=== PATIENT | female | born 1995 | race Caucasian/White ===

== ENCOUNTER → 2017-10-20 | Outpatient (CLI) | payer MEDICAID ==
[~2017-10-20] MED LIST: ACET1TAB43 PO; CEPH250T PO; HYDR1TAB PO; IBP200T PO; [UNRECOGNIZED DRUG - CODE] PO
--- NOTE | 2017-10-20 14:50 | Diagnostic Imaging Report ---
PROCEDURE: US OB SINGLE FETUS <14 WKS. TECHNIQUE: Multiple real-time grayscale images were obtained over the gravid uterus in various projections. INDICATION: dates. FINDINGS: There is a single live fetus in a cephalic presentation. The placenta is posterior. The amniotic fluid volume is normal. heart rate is recorded at 147 beats per minute. No gross abnormalities are seen. IMPRESSION: Single live IUP of approximately 14 weeks 5 days gestational age. The estimated date of confinement sonographically is 04/15/2018. Dictated by: Dictated on workstation # [id number]
== END ==
LOC: RAD 11:46
PROVIDERS: ATTEND Family Medicine
DX: Z34.92 Encounter for supervision of normal pregnancy, unspecified, second trimester (principal); Z3A.14 14 weeks gestation of pregnancy
CPT/HCPCS: 76801

== ENCOUNTER → 2017-11-29 | Outpatient (CLI) | payer MEDICAID ==
--- NOTE | 2017-11-29 14:23 | Diagnostic Imaging Report ---
INDICATION: survey. TECHNIQUE: Multiple real-time grayscale images were obtained over the gravid uterus. COMPARISON: 10/20/2017. FINDINGS: There is a single live fetus in a cephalic presentation. The placenta is posterior. The amniotic fluid volume is normal. kidneys, bladder, and stomach are unremarkable. Intracranial structures are unremarkable. There is a four-chamber heart. heart rate was recorded at 152 beats per minute. There is a three-vessel cord with normal cord insertion. The spine is unremarkable. Biometrical measurements are as follows: Biparietal 4.6 cm, age 19 weeks 6 days. Head circumference 16.8 cm, age 19 weeks 4 days. Abdominal circumference 15.0 cm, age 20 weeks 2 days. Femur length 3.2 cm, age 19 weeks 6 days. Sonographic estimate age: 20 weeks 0 days. Sonographic estimated date of delivery: 04/18/18. Estimated Weight: 325 gm (+/- 48 gm). LMP percentile: 23%. heart rate: 152 beats per minute. number: 1 of 1. IMPRESSION: Single live IUP at approximately 20 weeks gestational age demonstrating normal interval growth when compared with prior exam from 10/20/2017. No complicating features are identified. Dictated by: Dictated on workstation # [id number]
== END ==
LOC: RAD 13:14
PROVIDERS: ATTEND Family Medicine
DX: Z36.89 Encounter for other specified antenatal screening (principal); Z3A.20 20 weeks gestation of pregnancy
CPT/HCPCS: 76805

== ENCOUNTER 2018-04-11 19:00 | Inpatient (IN) | payer MEDICAID ==
[~2018-04-11] VITALS: Ht 157.5 cm; Wt 64.1 kg
[2018-04-11] MEDS ORDERED: AMPICILLIN INJECTION 2,000 MG in NS (IVPB) 50 ML IV SCH (19:37)
[2018-04-11 19:45] VITALS: BP 146/91
[2018-04-11] MEDS ORDERED: MISOPROSTOL 100 MCG (CYTOTEC) TAB PO ONE (19:45)
[2018-04-11] MEDS ORDERED: ZOLPIDEM 5 MG (AMBIEN) TAB PO PRN (19:45)
[2018-04-11] MEDS ORDERED: MINERAL OIL CONCENTRATE 99.9% 15 ML UDC TOP PRN (19:45)
[2018-04-11] MEDS: D5 LR IV SOLUTION 1,000 ML IV SCH (20:10)
[2018-04-11 20:31] LABS: BASOPHILS % (AUTO) 0 % (0-10); EOSINOPHILS # (AUTO) 0.1 10^3/uL (0.0-0.3); EOSINOPHILS % (AUTO) 1 % (0-10); HEMATOCRIT 37 % (35-52); HEMOGLOBIN 12.9 G/DL (11.5-16.0); LYMPHOCYTES # (AUTO) 3.3 X 10^3 (1.0-4.0); LYMPHOCYTES % (AUTO) 22 % (12-44); MEAN CORPUSCULAR HEMOGLOBIN 32 PG (25-34); MEAN CORPUSCULAR HGB CONC 35 G/DL (32-36); MEAN CORPUSCULAR VOLUME 90 FL (80-99); MEAN PLATELET VOLUME 11.7 FL (7.4-10.4); MONOCYTES # (AUTO) 1.2 X 10^3 (0.0-1.0); MONOCYTES % (AUTO) 8 % (0-12); NEUTROPHILS # (AUTO) 10.5 X 10^3 (1.8-7.8); NEUTROPHILS % (AUTO) 69 % (42-75); PLATELET COUNT 177 10^3/uL (130-400); RED BLOOD COUNT 4.09 10^6/uL (4.35-5.85); RED CELL DISTRIBUTION WIDTH 13.2 % (10.0-14.5); WHITE BLOOD COUNT 15.1 10^3/uL (4.3-11.0)
[2018-04-11] MEDS ORDERED: PREN-53 PO (20:35)
[2018-04-11 20:53] LABS: BAND NEUTROPHILS 0 %; BASOPHILS % (MANUAL) 0 %; EOSINOPHILS % (MANUAL) 1 %; LYMPHOCYTES % (MANUAL) 17 %; MONOCYTES % (MANUAL) 3 %; NEUTROPHILS % (MANUAL) 79 %; RBC MORPH NORMAL
[2018-04-11] MEDS ORDERED: LACTATED RINGERS 1,000 ML IV SCH (21:21)
[2018-04-11] MEDS ORDERED: CATHETER FLUSH 10 ML SYR IV SCH (22:00)
[2018-04-11] MEDS ORDERED: MISOPROSTOL 100 MCG (CYTOTEC) TAB PO SCH (23:45)
[2018-04-12] VITALS (45 sets, daily range): BP systolic 95–152; BP diastolic 51–97
[2018-04-12] MEDS: AMPICILLIN INJECTION 1,000 MG in NS (IVPB) 50 ML IV SCH ×4 (00:22→12:37)
[2018-04-12] MEDS: MISOPROSTOL 100 MCG (CYTOTEC) TAB PO SCH ×2 (00:30→04:18)
[2018-04-12] MEDS: D5 LR IV SOLUTION 1,000 ML IV SCH ×2 (01:56→10:59)
[2018-04-12] MEDS ORDERED: OXYTOCIN/NORMAL SALINE 500 ML IV ONE ×2 (07:29→16:08)
[2018-04-12] MEDS ORDERED: OXYTOCIN/NORMAL SALINE 500 ML IV SCH ×2 (07:34→17:29)
--- NOTE | 2018-04-12 07:35 | History & Physical-OB ---
OB - Chief Complaint & HPI Date/Time Date of Admission: Date of Admission: Apr 11, 2018 at 19:28 Time Seen by Provider: 07:15 Chief Complaint/History OB-Reason for Admission/Chief: Induction of Labor Hx : 1 Hx Para: 0 Expected Date of Delivery: Apr 15, 2018 Gestational Age in Weeks: 39 Gestational Age in Days: 4 Admission Nurse Assessment Rev: Yes History of Labs GBS positive Allergies and Home Medications Allergies Coded Allergies: No Known Drug Allergies (Unverified , 12/13/12) Home Medications [id number]/Iron Fumarate/FA/Dss 1 Each Tablet, 1 EACH PO DAILY, (Reported) Patient Home Medication List Home Medication List Reviewed: Yes OB - History Hx of Present Care: Yes Ultrasounds: Normal mid trimester US Obstetrical Complications: None Medical Complications: None Delivery History Hx Blood Disorders: No Patient Past Medical History no chronic medical problems Social History/Family History HIV/AIDS: No Recent Infectious Disease Expo: No Sexually Transmitted Disease: No Alcohol Use: Denies Use Recreational Drug Use: No Immunizations Hepatitis A: No Hepatitis B: No Tetanus Booster (TDap): Less than 5yrs OB - Admission Exam Physical Exam Vitals: Vital Signs 04/12/18 03:10 Temp 97.3 Pulse 75 Resp 18 B/P (MAP) 131/67 (88) O2 Delivery Room Air HEENT: Moist Membranes Heart: Rhythm Normal Lungs: Clear Abdomen: Gravid Extremities: Normal Cervical Dilatation: 1cm Effacement: 50% Membranes: Intact Heart Rate: 140's Accelerations: Accelerations Present Skilled Nursing Variability: Average (6-25) Contractions on Admission: >10 Minutes Apart Intensity: Mild Herron Scoring Tool (Modified) Dilation (cm): 1-2cm (1) Effacement (%): 31-51% (1) Descent/Station: -3 (0) Cervix Consistency: Medium(1) Cervix Position: Middle/Mid-Position (1) Herron Score: 4 Labs Laboratory Tests Test 04/11/18 20:10 Range/Units White Blood Count 15.1 H 4.3-11.0 10^3/uL Red Blood Count 4.09 L 4.35-5.85 10^6/uL Hemoglobin 12.9 11.5-16.0 G/DL Hematocrit 37 35-52 % Mean Corpuscular Volume 90 80-99 FL Mean Corpuscular Hemoglobin 32 25-34 PG Mean Corpuscular Hemoglobin Concent 35 32-36 G/DL Red Cell Distribution Width 13.2 10.0-14.5 % Platelet Count 177 130-400 10^3/uL Mean Platelet Volume 11.7 H 7.4-10.4 FL Neutrophils (%) (Auto) 69 42-75 % Lymphocytes (%) (Auto) 22 12-44 % Monocytes (%) (Auto) 8 0-12 % Eosinophils (%) (Auto) 1 0-10 % Basophils (%) (Auto) 0 0-10 % Neutrophils # (Auto) 10.5 H 1.8-7.8 X 10^3 Lymphocytes # (Auto) 3.3 1.0-4.0 X 10^3 Monocytes # (Auto) 1.2 H 0.0-1.0 X 10^3 Eosinophils # (Auto) 0.1 0.0-0.3 10^3/uL Basophils # (Auto) 0.0 0.0-0.1 10^3/uL Neutrophils % (Manual) 79 % Lymphocytes % (Manual) 17 % Monocytes % (Manual) 3 % Eosinophils % (Manual) 1 % Basophils % (Manual) 0 % Band Neutrophils 0 % Blood Morphology Comment NORMAL OB - Assessment/Plan/Diagnosis Assessment Assessment: induction of labor Admission Dx 1. IUP at 39w4d gestation Admission Status: Inpatient Order (span 2 midnights) Reason for Inpatient Admission: L&D Plan Plan: Induction Induction Method: per Misoprostol Protocol Other Plan desires epidural JEFF DAVALOS MD Apr 12, 2018 07:35
[2018-04-12] MEDS: BUTORPHANOL INJ 2 MG/ML (STADOL) VIAL IV PRN ×2 (09:27→12:37)
--- NOTE | 2018-04-12 11:34 | Progress Note (SOAP) ---
Subjective Date Seen by Provider: Apr 12, 2018 Time Seen by Provider: 11:30 Subjective/Events-last exam Patient in labor. Pitocin was at 10 uU/min. One prolonged decel lasting 6 minutes occurred with recovery. strip with rate in the 140 rate range. Objective Exam Vital Signs Date Time Temp Pulse Resp B/P (MAP) Pulse Ox O2 Delivery O2 Flow Rate FiO2 04/12/18 10:20 100 18 128/89 (102) Room Air 04/12/18 10:05 81 18 140/76 (97) Room Air 04/12/18 09:50 78 18 135/72 (93) Room Air 04/12/18 09:35 70 18 133/73 (93) Room Air 04/12/18 09:20 80 18 128/93 (105) Room Air 04/12/18 09:05 67 18 133/80 (97) Room Air 04/12/18 09:00 71 18 121/97 (105) Room Air 04/12/18 08:45 81 18 125/64 (84) Room Air 04/12/18 08:30 68 18 137/78 (97) Room Air 04/12/18 08:15 68 18 137/78 (97) Room Air 04/12/18 08:00 68 18 123/79 (94) Room Air 04/12/18 07:45 70 18 119/73 (88) Room Air 04/12/18 07:30 68 18 128/80 (96) Room Air 04/12/18 07:15 97.4 82 18 133/90 (104) Room Air 04/12/18 03:10 97.3 75 18 131/67 (88) Room Air 04/12/18 01:00 97.3 75 18 131/67 (88) Room Air 04/11/18 21:20 97.6 04/11/18 19:45 88 18 146/91 (109) Room Air I & O 04/12/18 07:00 Intake Total 2750 ml Balance 2750 ml Capillary Refill : General Appearance: No Apparent Distress Other comments cervix at 1 1/2 cm dilated and cervix now soft and 70% effaced. Results Lab Laboratory Tests 04/11/18 20:10: White Blood Count 15.1H, Red Blood Count 4.09L, Hemoglobin 12.9, Hematocrit 37, Mean Corpuscular Volume 90, Mean Corpuscular Hemoglobin 32, Mean Corpuscular Hemoglobin Concent 35, Red Cell Distribution Width 13.2, Platelet Count 177, Mean Platelet Volume 11.7H, Neutrophils (%) (Auto) 69, Lymphocytes (%) (Auto) 22 , Monocytes (%) (Auto) 8, Eosinophils (%) (Auto) 1, Basophils (%) (Auto) 0, Neutrophils # (Auto) 10.5H, Lymphocytes # (Auto) 3.3, Monocytes # (Auto) 1.2H, Eosinophils # (Auto) 0.1, Basophils # (Auto) 0.0, Neutrophils % (Manual) 79, Lymphocytes % (Manual) 17, Monocytes % (Manual) 3, Eosinophils % (Manual) 1, Basophils % (Manual) 0, Band Neutrophils 0, Blood Morphology Comment NORMAL Assessment/Plan Assessment/Plan Assess & Plan/Chief Complaint 1. IUP at 39w4d gestation -will restart pit at 5uU/min -family made aware that if labor not tolerated with starting pit back up and if no change of cervix she may need primary cs. All questions answered. Clinical Quality Measures DVT/VTE Risk/Contraindication: Risk Factor Score Per Nursin RFS Level Per Nursing on Admit: 1=Low/No VTE PPX JEFF DAVALOS MD Apr 12, 2018 11:34
[2018-04-12] MEDS ORDERED: SUFENTA 0.6MCG/ML BUPIVA 0.125 100 ML ONE (14:13)
[2018-04-12] MEDS ORDERED: BUPIVACAINE 0.5% 30 ML (SENSORCAINE) VIAL ONE ×2 (14:43→17:48)
[2018-04-12] MEDS ORDERED: LIDOCAINE PF 2% 5 ML (XYLOCAINE) VIAL ONE ×3 (14:43→16:07)
[2018-04-12] MEDS ORDERED: fentaNYL INJECTION 100 MCG/2 ML AMP ONE (14:44)
[2018-04-12] MEDS ORDERED: BUPIVACAINE 0.25% 30 ML (SENSORCAINE) VIAL ONE (14:46)
[2018-04-12] MEDS ORDERED: LACTATED RINGERS 1,000 ML IV SCH (15:11)
[2018-04-12] MEDS ORDERED: ONDANSETRON 4 MG/2 ML (SDV) Z0FRAN IV PRN (15:15)
[2018-04-12] MEDS ORDERED: NALOXONE 0.4 MG/ML 1 ML (NARCAN) VIAL IV PRN (15:15)
[2018-04-12] MEDS ORDERED: EPIDURAL (SUFENTA 0.6MCG/ML BUPIVA 0.125%) 100 ML BAG EPI PRN (15:15)
[2018-04-12] MEDS ORDERED: diphenhydrAMINE 50 MG/ML INJ (BENADRYL) IV PRN (15:15)
[2018-04-12] MEDS ORDERED: AZITHROMYCIN INJECTION 500 MG in NS (IVPB) 250 ML IV ONE (15:45)
[2018-04-12] MEDS ORDERED: ceFAZolin 2 GM IV Premixed 50 ML IV ONE (15:45)
[2018-04-12] MEDS ORDERED: LACTATED RINGERS 1,000 ML IV PRN ×2 (15:47)
--- NOTE | 2018-04-12 15:48 | Progress Note (SOAP) ---
Subjective Date Seen by Provider: Apr 12, 2018 Time Seen by Provider: 15:40 Subjective/Events-last exam Patient is with epidural now. She has good pain relief. Objective Exam Vital Signs Date Time Temp Pulse Resp B/P (MAP) Pulse Ox O2 Delivery O2 Flow Rate FiO2 04/12/18 11:28 68 20 130/81 (97) Room Air 04/12/18 11:05 62 18 125/62 (83) Room Air 04/12/18 10:50 67 18 109/62 (78) Room Air 04/12/18 10:35 59 18 121/59 (79) Room Air 04/12/18 10:20 100 18 128/89 (102) Room Air 04/12/18 10:05 81 18 140/76 (97) Room Air 04/12/18 09:50 78 18 135/72 (93) Room Air 04/12/18 09:35 70 18 133/73 (93) Room Air 04/12/18 09:20 80 18 128/93 (105) Room Air 04/12/18 09:05 67 18 133/80 (97) Room Air 04/12/18 09:00 71 18 121/97 (105) Room Air 04/12/18 08:45 81 18 125/64 (84) Room Air 04/12/18 08:30 68 18 137/78 (97) Room Air 04/12/18 08:15 68 18 137/78 (97) Room Air 04/12/18 08:00 68 18 123/79 (94) Room Air 04/12/18 07:45 70 18 119/73 (88) Room Air 04/12/18 07:30 68 18 128/80 (96) Room Air 04/12/18 07:15 97.4 82 18 133/90 (104) Room Air 04/12/18 03:10 97.3 75 18 131/67 (88) Room Air 04/12/18 01:00 97.3 75 18 131/67 (88) Room Air 04/11/18 21:20 97.6 04/11/18 19:45 88 18 146/91 (109) Room Air I & O 04/12/18 07:00 Intake Total 2750 ml Balance 2750 ml Capillary Refill : General Appearance: No Apparent Distress Other comments Cervix: 2cm, 80% effaced, still -3. monitor at times flat with no variability. Variable decels with multiple contractions. Results Lab Laboratory Tests 04/11/18 20:10: White Blood Count 15.1H, Red Blood Count 4.09L, Hemoglobin 12.9, Hematocrit 37, Mean Corpuscular Volume 90, Mean Corpuscular Hemoglobin 32, Mean Corpuscular Hemoglobin Concent 35, Red Cell Distribution Width 13.2, Platelet Count 177, Mean Platelet Volume 11.7H, Neutrophils (%) (Auto) 69, Lymphocytes (%) (Auto) 22 , Monocytes (%) (Auto) 8, Eosinophils (%) (Auto) 1, Basophils (%) (Auto) 0, Neutrophils # (Auto) 10.5H, Lymphocytes # (Auto) 3.3, Monocytes # (Auto) 1.2H, Eosinophils # (Auto) 0.1, Basophils # (Auto) 0.0, Neutrophils % (Manual) 79, Lymphocytes % (Manual) 17, Monocytes % (Manual) 3, Eosinophils % (Manual) 1, Basophils % (Manual) 0, Band Neutrophils 0, Blood Morphology Comment NORMAL Assessment/Plan Assessment/Plan Assess & Plan/Chief Complaint 1. IUP at 39w4d gestation -will restart pit at 5uU/min -family made aware that if labor not tolerated with starting pit back up and if no change of cervix she may need primary cs. All questions answered. 05:45 -due to lack of cervical dilation and monitor non-reassuring, will plan on primary low CS. Dr Munguia and surgery crew notified -patient and family in agreement with plan for CS. Clinical Quality Measures DVT/VTE Risk/Contraindication: Risk Factor Score Per Nursin RFS Level Per Nursing on Admit: 1=Low/No VTE PPX JEFF DAVALOS MD Apr 12, 2018 15:48
[2018-04-12] MEDS ORDERED: METHYLERGONOVINE 0.2 MG/ML (METHERGINE) AMP ONE (15:58)
[2018-04-12] MEDS ORDERED: METOCLOPRAMIDE INJ 10 MG/2 ML (REGLAN) IV ONE (16:00)
[2018-04-12] MEDS ORDERED: CITRIC ACID/SOB CIT (BICITRA) 30 ML UDC PO ONE (16:00)
[2018-04-12] MEDS ORDERED: raNItidine INJECTION 50 MG in NS (IVPB) 50 ML IV ONE (16:00)
[2018-04-12] MEDS ORDERED: ONDANSETRON 4 MG/2 ML (SDV) Z0FRAN ONE (16:06)
--- NOTE | 2018-04-12 16:28 | Physician Progress Note ---
Progress Note Assessment/Plan Date Seen by Provider: Apr 12, 2018 Time Seen by Provider: 15:45 Events since last exam epidural placement Assessment/Plan Asked to consult by Dr. Joseph due to failed induction and heartrate decelerations. Plan primary LTCS. will use epidural. Risks of surgery include bleeding, infection, injury to bowel, bladder and ureter. Consent signed. Has been receiving IV ampicillin for GBS prophylaxis. Will do ancef 2 grams and Zithromax 500 mg (due to AROM) for surgical prophylaxis. History per Dr. Joseph. 1. IUP at 39w4d gestation -will restart pit at 5uU/min -family made aware that if labor not tolerated with starting pit back up and if no change of cervix she may need primary cs. All questions answered. 15:45 -due to lack of cervical dilation and monitor non-reassuring, will plan on primary low CS. Dr Hernandez and surgery crew notified -patient and family in agreement with plan for CS. Vitals Last set of Vitals Signs Vital Signs Date Time Temp Pulse Resp B/P (MAP) Pulse Ox O2 Delivery O2 Flow Rate FiO2 04/12/18 11:28 68 20 130/81 (97) Room Air 04/12/18 07:15 97.4 I&O I&O Intake and Output 04/12/18 00:00 Intake Total 1450 ml Balance 1450 ml Intake Oral 400 ml IV Total 1050 ml Daily Weight Change No Labs Laboratory Tests 04/11/18 20:10: White Blood Count 15.1H, Red Blood Count 4.09L, Hemoglobin 12.9, Hematocrit 37, Mean Corpuscular Volume 90, Mean Corpuscular Hemoglobin 32, Mean Corpuscular Hemoglobin Concent 35, Red Cell Distribution Width 13.2, Platelet Count 177, Mean Platelet Volume 11.7H, Neutrophils (%) (Auto) 69, Lymphocytes (%) (Auto) 22 , Monocytes (%) (Auto) 8, Eosinophils (%) (Auto) 1, Basophils (%) (Auto) 0, Neutrophils # (Auto) 10.5H, Lymphocytes # (Auto) 3.3, Monocytes # (Auto) 1.2H, Eosinophils # (Auto) 0.1, Basophils # (Auto) 0.0, Neutrophils % (Manual) 79, Lymphocytes % (Manual) 17, Monocytes % (Manual) 3, Eosinophils % (Manual) 1, Basophils % (Manual) 0, Band Neutrophils 0, Blood Morphology Comment NORMAL Clinical Quality Measures DVT/VTE Risk/Contraindication: Risk Factor Score Per Nursin RFS Level Per Nursing on Admit: 1=Low/No VTE PPX CHARLI HERNANDEZ DO Apr 12, 2018 16:28
[2018-04-12] MEDS ORDERED: MEPERIDINE (DEMEROL) INJ 50 MG/ML IVP PRN (17:15)
[2018-04-12] MEDS ORDERED: morphine INJ 10 MG/ML 1ML (SYR OR VIAL) IVP PRN (17:15)
[2018-04-12] MEDS ORDERED: ONDANSETRON 4 MG/2 ML (SDV) Z0FRAN IVP PRN (17:15)
[2018-04-12] MEDS ORDERED: D5 LR IV SOLUTION 1,000 ML IV ONE (17:29)
[2018-04-12] MEDS ORDERED: TETANUS,DIPTH,PERTUSS P/F (BOOSTRIX) 0.5 ML VIAL IM ONE (17:30)
[2018-04-12] MEDS ORDERED: BENZOCAINE/MENTHOL (DERMOPLAST) 56 ML CAN TP PRN (17:30)
[2018-04-12] MEDS ORDERED: WITCH HAZEL(TUCKS) 40 EA JAR TOP PRN (17:30)
[2018-04-12] MEDS ORDERED: MEASLES,MUMPS,RUBELLA 1 EA INJ SQ ONE (17:30)
[2018-04-12] MEDS ORDERED: DIBUCAINE (NUPERCAINAL) 1% OINT 30 GM TOP PRN (17:30)
--- NOTE | 2018-04-12 17:36 | Cesarean Section Operative ---
Procedure Procedure Note Pre-operative Diagnosis: Roseline Olson is a 21 /Para 1 / 0, Gestational Age 39 5/7 weeks, failure to progress/failed induction; nonreassuring testing. Post-operative Diagnosis: same Procedure: primary low transverse section Physician: CHARLI HERNANDEZ Pathology Specialist: Real Randall, MS III Estimated blood loss: 400 mL Disposition: stable Findings: Viable female infant, Apgars 8/9, weight 7#oz, intact placenta, 3vc, normal appearing uterus, tubes, and ovaries. Indications:Roseline Olson is a 21 /Para 1 / 0,Gestational Age 39 5/7 weeks, failure to progress/failed induction; nonreassuring testing. Procedure Details: The patient was seen in pre-op and the procedure was discussed with the patient in full, including the risks, benefits, and alternatives. All questions were answered. The patient was taken to the operating room and a time out was performed, verifying patient and procedure. After spinal anesthesia was placed by our anesthesia colleagues, the patient was placed in the dorsal supine with leftward tilt for uterine displacement.~ Her abdomen was then prepped and draped in the typical sterile fashion. A Pfannenstiel skin incision was made using a scalpel and carried down through the underlying fascia. The fascia was incised in the midline and tented up using Luh clamps. On both the inferior and superior fascia side the rectus muscle was dissected off bluntly and sharply using Henry scissors. The peritoneum was identified and entered bluntly in the midline. This was then stretched laterally using manual strength. After entering the abdominal cavity and confirming lack of intraperitoneal adhesions, a large Mohit retractor was placed and the lower uterine segment was visualized. A scalpel was utilized to make a low transverse uterine incision. Amniotomy was performed with an Allis clamp with return of clear fluid. The infant's head was grasped and brought to the level of the incision. Fundal pressure was applied and infant was delivered without difficulty. Mouth and nares were suctioned with bulb suction. After the umbilical cord was clamped and cut, the infant was handed off to the pediatric staff. A sample of cord blood was then obtained. The placenta was delivered intact via uterine massage. The uterus was cleared of all clots and debris. The uterine incision was closed using 0 Vicryl in a running locked fashion. A second imbricated layer was placed using 0 Vicryl in a running fashion as well. The uterus was flexed forward and the posterior rectouterine space was inspected and cleared of all clots and debris. Again the hysterotomy site was examined and hemostasis was observed. The bilateral tubes and ovaries appeared normal. The uterus was placed back into the abdominal cavity and abdominal gutters were cleared of all clots and debris. A final check of the uterine incision showed it to be hemostatic. The peritoneum was closed using 3-0 Vicryl in a running fashion. The fascia was closed with 0 Vicryl in a running fashion. The subcutaneous space was hemostatic, and irrigated. The subcutaneous space was closed with 3-0 Vicryl in several single interrupted stitches. The skin was then closed using 4-0 Monocryl in a running subcuticular fashion. The skin edges were reapproximated together and were hemostatic. A pressure dressing was applied. All sponge, lap and needle counts were correct at the end of the procedure per nursing. Vitals - Labs Vital Signs - I&O Vital Signs Date Time Temp Pulse Resp B/P (MAP) Pulse Ox O2 Delivery O2 Flow Rate FiO2 04/12/18 11:28 68 20 130/81 (97) Room Air 04/12/18 11:05 62 18 125/62 (83) Room Air 04/12/18 10:50 67 18 109/62 (78) Room Air 04/12/18 10:35 59 18 121/59 (79) Room Air 04/12/18 10:20 100 18 128/89 (102) Room Air 04/12/18 10:05 81 18 140/76 (97) Room Air 04/12/18 09:50 78 18 135/72 (93) Room Air 04/12/18 09:35 70 18 133/73 (93) Room Air 04/12/18 09:20 80 18 128/93 (105) Room Air 04/12/18 09:05 67 18 133/80 (97) Room Air 04/12/18 09:00 71 18 121/97 (105) Room Air 04/12/18 08:45 81 18 125/64 (84) Room Air 04/12/18 08:30 68 18 137/78 (97) Room Air 04/12/18 08:15 68 18 137/78 (97) Room Air 04/12/18 08:00 68 18 123/79 (94) Room Air 04/12/18 07:45 70 18 119/73 (88) Room Air 04/12/18 07:30 68 18 128/80 (96) Room Air 04/12/18 07:15 97.4 82 18 133/90 (104) Room Air 04/12/18 03:10 97.3 75 18 131/67 (88) Room Air 04/12/18 01:00 97.3 75 18 131/67 (88) Room Air 04/11/18 21:20 97.6 04/11/18 19:45 88 18 146/91 (109) Room Air I & O 04/12/18 07:00 Intake Total 2750 ml Balance 2750 ml Labs Laboratory Tests 04/11/18 20:10: White Blood Count 15.1H, Red Blood Count 4.09L, Hemoglobin 12.9, Hematocrit 37, Mean Corpuscular Volume 90, Mean Corpuscular Hemoglobin 32, Mean Corpuscular Hemoglobin Concent 35, Red Cell Distribution Width 13.2, Platelet Count 177, Mean Platelet Volume 11.7H, Neutrophils (%) (Auto) 69, Lymphocytes (%) (Auto) 22 , Monocytes (%) (Auto) 8, Eosinophils (%) (Auto) 1, Basophils (%) (Auto) 0, Neutrophils # (Auto) 10.5H, Lymphocytes # (Auto) 3.3, Monocytes # (Auto) 1.2H, Eosinophils # (Auto) 0.1, Basophils # (Auto) 0.0, Neutrophils % (Manual) 79, Lymphocytes % (Manual) 17, Monocytes % (Manual) 3, Eosinophils % (Manual) 1, Basophils % (Manual) 0, Band Neutrophils 0, Blood Morphology Comment NORMAL CHARLI HERNANDEZ DO Apr 12, 2018 17:36
[2018-04-12] MEDS: DOCUSATE SODIUM 100 MG (COLACE) CAP PO SCH (20:07)
[2018-04-12] MEDS: KETOROLAC 30 MG/ML VIAL IVP SCH (20:07)
[2018-04-12] MEDS: HYDROcodone/APAP 5 MG/325 MG (LORTAB) TAB PO PRN (20:07)
[2018-04-12] MEDS ORDERED: CATHETER FLUSH 10 ML SYR IV SCH (22:00)
[2018-04-13 00:27] VITALS: BP 134/76
[2018-04-13] MEDS: HYDROcodone/APAP 5 MG/325 MG (LORTAB) TAB PO PRN ×4 (00:27→20:23)
[2018-04-13] MEDS: KETOROLAC 30 MG/ML VIAL IVP SCH (02:08)
[2018-04-13 04:05] VITALS: BP 119/61
[2018-04-13 06:04] LABS: BASOPHILS % (AUTO) 0 % (0-10); EOSINOPHILS # (AUTO) 0.1 10^3/uL (0.0-0.3); EOSINOPHILS % (AUTO) 0 % (0-10); HEMATOCRIT 29 % (35-52); LYMPHOCYTES # (AUTO) 3.1 X 10^3 (1.0-4.0); LYMPHOCYTES % (AUTO) 23 % (12-44); MEAN CORPUSCULAR HEMOGLOBIN 32 PG (25-34); MEAN CORPUSCULAR HGB CONC 35 G/DL (32-36); MEAN CORPUSCULAR VOLUME 92 FL (80-99); MEAN PLATELET VOLUME 11.4 FL (7.4-10.4); MONOCYTES # (AUTO) 1.2 X 10^3 (0.0-1.0); MONOCYTES % (AUTO) 9 % (0-12); NEUTROPHILS # (AUTO) 9.3 X 10^3 (1.8-7.8); NEUTROPHILS % (AUTO) 68 % (42-75); PLATELET COUNT 121 10^3/uL (130-400); RED BLOOD COUNT 3.11 10^6/uL (4.35-5.85); RED CELL DISTRIBUTION WIDTH 13.2 % (10.0-14.5); WHITE BLOOD COUNT 13.7 10^3/uL (4.3-11.0)
[2018-04-13] MEDS ORDERED: IBUPROFEN 600 MG (MOTRIN) TAB PO ONE ×2 (07:49→13:26)
[2018-04-13 07:55] VITALS: BP 126/67
--- NOTE | 2018-04-13 07:59 | Anesthesia-Regional Post-Op ---
Regional Patient Condition Mental Status: Alert, Oriented x3 Circulation: Same as Pre-Op Headache: Absent Sensation: Full Recovery Motor Block: Absent Post Op Complications Complications None Follow Up Care/Instructions Patient Instructions None needed. Anesthesia/Patient Condition Patient is doing well, no complaints, stable vital signs, no apparent adverse anesthesia problems. No complications reported per nursing. CHUCHO THURMAN CRNA Apr 13, 2018 07:58
[2018-04-13] MEDS: PRENATAL VITAMIN 1 EA TAB PO SCH (08:10)
[2018-04-13] MEDS: DOCUSATE SODIUM 100 MG (COLACE) CAP PO SCH ×2 (08:11→20:23)
[2018-04-13] MEDS: FERROUS SULF 325 MG (IRON) TAB PO SCH (08:11)
[2018-04-13] MEDS ORDERED: FERROUS SULF 325 MG (IRON) TAB PO SCH (09:00)
[2018-04-13] MEDS: IBUPROFEN 600 MG (MOTRIN) TAB PO SCH ×2 (13:32→20:23)
[2018-04-13 13:45] VITALS: BP_SYST 118; BP_SYST 122; BP_DIAS 76; BP_DIAS 83
--- NOTE | 2018-04-13 14:46 | Postpartum Progress Note ---
Post Op Post-operative Day #1 s/p PLTCS Subjective: Patient is without complaints. Ambulating, voiding after romero removed. Tolerating a regular diet without nausea or vomiting. Normal lochia. Pain is well controlled with oral pain medications. Passing flatus. breast feeding. Objective: Laboratory Tests Test 04/13/18 05:55 Range/Units White Blood Count 13.7 H 4.3-11.0 10^3/uL Red Blood Count 3.11 L 4.35-5.85 10^6/uL Hemoglobin 10.0 #L 11.5-16.0 G/DL Hematocrit 29 L 35-52 % Mean Corpuscular Volume 92 80-99 FL Mean Corpuscular Hemoglobin 32 25-34 PG Mean Corpuscular Hemoglobin Concent 35 32-36 G/DL Red Cell Distribution Width 13.2 10.0-14.5 % Platelet Count 121 L 130-400 10^3/uL Mean Platelet Volume 11.4 H 7.4-10.4 FL Neutrophils (%) (Auto) 68 42-75 % Lymphocytes (%) (Auto) 23 12-44 % Monocytes (%) (Auto) 9 0-12 % Eosinophils (%) (Auto) 0 0-10 % Basophils (%) (Auto) 0 0-10 % Neutrophils # (Auto) 9.3 H 1.8-7.8 X 10^3 Lymphocytes # (Auto) 3.1 1.0-4.0 X 10^3 Monocytes # (Auto) 1.2 H 0.0-1.0 X 10^3 Eosinophils # (Auto) 0.1 0.0-0.3 10^3/uL Basophils # (Auto) 0.0 0.0-0.1 10^3/uL Physical Exam: General - Alert and oriented, no apparent distress Abdomen - Soft, appropriately tender to palpation, non-distended, fundus firm at umbilicus Incision - clean, dry and intact; no erythema or induration, no drainage Extremities - no edema, negative Glen's bilaterally Assessment: 1. post-operative day # 1, status post PLTCS. Recovering well, hemodynamically stable 2. Mild Acute blood loss anemia Plan: Routine post-operative care. Encourage breast feeding. Encourage ambulation. VTE prophylaxis: SCDs. Ferrous sulfate supplementation. Plan for discharge tomorrow Vitals - Labs Vital Signs - I&O Vital Signs Date Time Temp Pulse Resp B/P (MAP) Pulse Ox O2 Delivery O2 Flow Rate FiO2 04/13/18 13:45 97.8 72 18 118/76 (90) Room Air 04/13/18 07:55 97.9 82 18 126/67 (86) 100 Room Air 04/13/18 04:05 97.3 80 18 119/61 (80) 98 Room Air 04/13/18 00:27 97.8 101 18 134/76 (95) 100 Room Air 04/12/18 20:07 98.2 98 18 133/72 (92) 100 Room Air 04/12/18 19:15 98.1 80 18 118/73 (88) 100 Room Air 04/12/18 16:20 104 18 113/58 (76) 100 Non Rebreather 15.00 04/12/18 16:00 97.7 106 18 95/51 (66) 100 Non Rebreather 15.00 04/12/18 15:50 108 18 105/55 (72) 100 Non Rebreather 15.00 04/12/18 15:30 74 20 114/59 (77) 97 Non Rebreather 15.00 04/12/18 15:23 82 20 115/65 (82) 97 Room Air 04/12/18 15:20 84 20 116/59 (78) 97 Room Air 04/12/18 15:16 73 20 126/67 (86) 98 Room Air 04/12/18 15:13 82 20 112/59 (76) 98 Room Air 04/12/18 15:10 82 20 127/68 (87) 98 Room Air 04/12/18 15:03 70 20 141/68 (92) 98 Room Air 04/12/18 15:00 75 20 136/65 (88) 98 Room Air 04/12/18 14:50 63 20 135/72 (93) 99 Room Air I & O 04/13/18 07:00 Intake Total 5577 ml Output Total 4100 ml Balance 1477 ml Labs Laboratory Tests 04/13/18 05:55: White Blood Count 13.7H, Red Blood Count 3.11L, Hemoglobin 10.0#L, Hematocrit 29L, Mean Corpuscular Volume 92, Mean Corpuscular Hemoglobin 32, Mean Corpuscular Hemoglobin Concent 35, Red Cell Distribution Width 13.2, Platelet Count 121L, Mean Platelet Volume 11.4H, Neutrophils (%) (Auto) 68, Lymphocytes ( %) (Auto) 23, Monocytes (%) (Auto) 9, Eosinophils (%) (Auto) 0, Basophils (%) ( Auto) 0, Neutrophils # (Auto) 9.3H, Lymphocytes # (Auto) 3.1, Monocytes # (Auto ) 1.2H, Eosinophils # (Auto) 0.1, Basophils # (Auto) 0.0 CHARLI HERNANDEZ DO Apr 13, 2018 14:46
[2018-04-13 17:15] VITALS: BP 113/67
[2018-04-13] MEDS ORDERED: TETANUS,DIPTH,PERTUSS P/F (BOOSTRIX) 0.5 ML VIAL IM ONE (17:19)
[2018-04-13 20:20] VITALS: BP 128/79
[2018-04-14] MEDS: IBUPROFEN 600 MG (MOTRIN) TAB PO SCH ×2 (04:50→12:37)
[2018-04-14] MEDS: HYDROcodone/APAP 5 MG/325 MG (LORTAB) TAB PO PRN ×2 (04:52→09:25)
[2018-04-14 04:55] VITALS: BP 112/75
[2018-04-14] MEDS ORDERED: IBUP-844 PO (08:52)
[2018-04-14] MEDS ORDERED: ACHD5005 PO (08:52)
[2018-04-14] MEDS ORDERED: FERR325T18 PO (08:52)
--- NOTE | 2018-04-14 08:54 | Discharge Inst-Women's Service ---
Discharge Inst-Women's Serv Depart Medication/Instructions New, Converted or Re-Newed RX: RX on Chart Instructions no driving for 1 week, nothing in the vagina for 6 weeks, no lifting over 25 lbs Consults/Follow Up Additional Follow Up: Yes (1 week for incisino check with Ezra; 6 weeks with Opal) Activity Activity: Activity as Tolerated Driving Instructions: No Driving for 1 Week NO SMOKING: NO SMOKING Nothing Inside Vagina: No Douching, No [place], No Tampons Diet Discharge Diet: No Restrictions Symptoms to Report to : Swelling Increased, Bleeding Excessive, Pain Increased, Fever Over 101 Degrees F, Vaginal Bleeding Increase, Cramps in Feet or Legs, Vaginal Discharge Foul For Any Problems or Questions: Contact Your Physician Skin/Wound Care Infection Signs and Symptoms: Increased Redness, Foul Odor of Wound, Increased Drainage, Skin Itchy or Has a Rash, Increased Swelling, Temperature Above 101 F Operative Area Clean and Dry: Keep Incision Clean/Dry Stitches/[place]/Dermabond: Dermabond Bathing Instructions: CHARLI Millan DO Apr 14, 2018 08:54
--- NOTE | 2018-04-14 08:55 | Postpartum Progress Note ---
Post Op Post-operative Day #2 s/p PLTCS Subjective: Patient is without complaints. Ambulating, voiding after romero removed. Tolerating a regular diet without nausea or vomiting. Normal lochia. Pain is well controlled with oral pain medications. Passing flatus. breast feeding. Objective: 04/14/18 04:55 Temp 97.6 Pulse 71 Resp 20 B/P (MAP) 112/75 (87) Pulse Ox 100 O2 Delivery Room Air 04/14/18 00:00 Intake Total 2200 ml Output Total 1800 ml Balance 400 ml Physical Exam: General - Alert and oriented, no apparent distress Abdomen - Soft, appropriately tender to palpation, non-distended, fundus firm at umbilicus Incision - clean, dry and intact; no erythema or induration, very small amount of serosanguineous drainage. Extremities - no edema, negative Glen's bilaterally Assessment: 1. post-operative day # 2, status post PLTCS. Recovering well, hemodynamically stable 2. Acute blood loss anemia Plan: Routine post-operative care. Encourage breast feeding. Encourage ambulation. VTE prophylaxis: SCDs. Ferrous sulfate supplementation. Plan for discharge today Vitals - Labs Vital Signs - I&O Vital Signs Date Time Temp Pulse Resp B/P (MAP) Pulse Ox O2 Delivery O2 Flow Rate FiO2 04/14/18 04:55 97.6 71 20 112/75 (87) 100 Room Air 04/13/18 20:20 97.7 79 20 128/79 (95) 98 Room Air 04/13/18 17:15 97.4 74 18 113/67 (82) 98 Room Air 04/13/18 13:45 97.8 72 18 118/76 (90) Room Air I & O 04/14/18 07:00 Intake Total 2800 ml Output Total 2800 ml Balance 0 ml CHARLI HERNANDEZ DO Apr 14, 2018 08:55
[2018-04-14 09:00] VITALS: BP 115/61
[2018-04-14] MEDS: FERROUS SULF 325 MG (IRON) TAB PO SCH (09:24)
[2018-04-14] MEDS: PRENATAL VITAMIN 1 EA TAB PO SCH (09:24)
[2018-04-14] MEDS: DOCUSATE SODIUM 100 MG (COLACE) CAP PO SCH (09:25)
[2018-04-14 14:15] VITALS: BP 115/61
--- NOTE | 2018-04-26 17:16 | Discharge Summary ---
Diagnosis/Chief Complaint Date of Admission Apr 11, 2018 at 19:28 Date of Discharge Apr 14, 2018 at 14:15 Discharge Date: Apr 14, 2018 Discharge Summary Procedures None. Discharge Physical Examination Allergies: Coded Allergies: No Known Drug Allergies (Unverified , 12/13/12) Discharge Home Medications Reviewed and agree with Discharge Medication list on patient's Discharge Instruction sheet Instructions to Patient/Family Please see electronic discharge instructions given to patient. Clinical Quality Measures DVT/VTE Risk/Contraindication: Risk Factor Score Per Nursin RFS Level Per Nursing on Admit: 1=Low/No VTE PPX CHARLI HERNANDEZ DO Apr 26, 2018 17:16
== END 2018-04-14 14:15 | disposition home or self-care (01) | DRG 765 ==
LOC: LDRP 19:28
PROVIDERS: ADMIT Family Medicine; ATTEND Family Medicine
PROC: 3E0DXGC Introduction of Other Therapeutic Substance into Mouth and Pharynx, External Approach (ICD-10-PCS; 2018-04-11)
PROC: 10D00Z1 Extraction of Products of Conception, Low, Open Approach (ICD-10-PCS; principal; 2018-04-12 16:31)
DX: O62.0 Primary inadequate contractions (principal); O61.0 Failed medical induction of labor; O76 Abnormality in fetal heart rate and rhythm complicating labor and delivery; O90.81 Anemia of the puerperium; O99.824 Streptococcus B carrier state complicating childbirth; D62 Acute posthemorrhagic anemia; Z37.0 Single live birth; Z3A.39 39 weeks gestation of pregnancy; Z23 Encounter for immunization
CPT/HCPCS: 36415; 85007; 85025; 85027; 86850; 86900; 86901; 90715

== ENCOUNTER 2021-07-05 00:47 | Emergency (ER) | payer MEDICAID ==
[~2021-07-05] VITALS: Ht 158 cm; Wt 49.0 kg
[~2021-07-05 00:47] MED LIST changes: +ACHD5005 PO; +FERR325T18 PO; +IBUP-844 PO; +PREN-53 PO
[2021-07-05 00:55] VITALS: BP 133/78
[2021-07-05] MEDS ORDERED: methylPREDNISolone 40 MG/ML (DEPO MEDROL) VIAL IM ONE (01:00)
[2021-07-05] MEDS ORDERED: LORATADINE (CLARITIN) 10 MG TAB PO ONE (01:00)
--- NOTE | 2021-07-05 01:06 | ED Integumentary General ---
General Chief Complaint: Skin/Wound Problems Stated Complaint: POISON LUCA RXN Source: patient Exam Limitations: no limitations History of Present Illness Date Seen by Provider: Jul 05, 2021 Time Seen by Provider: 00:48 Initial Comments Patient to the ER by private conveyance with chief complaint about 3 days ago she was exposed to some poison luca or similar plant product causing a intensely pruritic rash all over her left abdomen and all 4 extremities. She has been using several topical creams including calamine lotion. She has taken a couple tablets of Benadryl for the itching. She went to [facility] yesterday and received a shot of steroid which did not help much. She is not on oral steroids. She did have a period approximately 1 month ago. She is not on control. No shortness of breath or wheezing Allergies and Home Medications Allergies Coded Allergies: No Known Drug Allergies (Unverified , 12/13/12) Patient Home Medication List Home Medication List Reviewed: Yes Ferrous Sulfate (Ferrous Sulfate) 325 Mg Tablet, 325 MG PO DAILY@0700 Prescribed by: CHARLI HERNANDEZ on 04/14/18 0852 Hydrocodone Bit/Acetaminophen (Lortab 5 Mg Tablet) 1 Tab Tab, 1-2 TAB PO Q6H PRN for PAIN-MODERATE Prescribed by: CHARLI HERNANDEZ on 04/14/18 0852 Ibuprofen (Ibu) 600 Mg Tablet, 600 MG PO Q6H Prescribed by: CHARLI HERNANDEZ on 04/14/18 0852 Gkf319/Iron Fumarate/FA/Dss ( 19 Tablet) 1 Each Tablet, 1 EACH PO DAILY, (Reported) Entered as Reported by: FRANCI ANDRADE on 04/11/182034 Review of Systems Review of Systems Constitutional: No chills, No diaphoresis EENTM: No ear discharge, No ear pain Respiratory: No cough, No short of breath Cardiovascular: No chest pain, No edema Gastrointestinal: No abdominal pain, No constipation, No diarrhea Genitourinary: No discharge, No dysuria Musculoskeletal: No back pain, No joint pain Skin: see HPI, pruritus, rash All Other Systems Reviewed Negative Unless Noted: Yes Past Vnmjcet-Lshcex-Ggvcsu Hx Patient Social History Tobacco Use?: No Use of E-Cig and/or Vaping dev: No Alcohol Use?: No Immunizations Up To Date Tetanus Booster (TDap): Less than 5yrs PED Vaccines UTD: Yes Seasonal Allergies Seasonal Allergies: No Past Medical History Surgeries: Yes (EAR TUBES) Tonsillectomy Respiratory: No Cardiac: Yes Heart Murmur Neurological: No Reproductive Disorders: No Sexually Transmitted Disease: No HIV/AIDS: No UTI (peds) Gastrointestinal: No Musculoskeletal: Yes Fractures Endocrine: No HEENT: No Cancer: No Psychosocial: No Integumentary: No Blood Disorders: No Family Medical History Patient reports no known family medical history. No Pertinent Family Hx Physical Exam Vital Signs Capillary Refill : General Appearance: WD/WN, mild distress HEENT: PERRL/EOMI, pharynx normal Neck: full range of motion, supple, normal inspection Cardiovascular: normal peripheral pulses, regular rate, rhythm Respiratory: no respiratory distress, no accessory muscle use Gastrointestinal: normal bowel sounds, non tender, soft Skin: rash, other (Pruritus over the left abdomen and trunk and scattered over the extremities.) Progress/Results/Core Measures Progress Progress Note : Time: 01:02 Progress Note Depo-Medrol 40 mg, Claritin, antihistamines, topical creams. Bedside is negative. Departure Impression Primary Impression: Contact dermatitis due to poison luca Disposition: HOME, SELF-CARE Condition: Stable Departure-Patient Inst. Decision time for Depature: 01:02 Referrals: JEFF DAVALOS MD (PCP/Family) Primary Care Physician Patient Instructions: Poison Luca, Poison Robeline, Poison Sumac (DC) Add. Discharge Instructions: Continue using the topical antiitch cream such as calamine lotion. Claritin 10 mg twice a day as needed until the itching subsides. Benadryl 1 to 2 tablets every 6 hours as necessary for itching or anxiety or difficulty sleeping. The steroid shot today will last about 5 to 7 days. It can be activating and caused her to feel like you have extra energy or give you difficulty getting to sleep. Benadryl 1 to 2 tablets at night can help with sleep. 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 All discharge instructions reviewed with patient and/or family. Voiced understanding. Scripts Prednisone (Prednisone) 20 Mg Tab 40 MG PO DAILY for 5 Days, #10 TAB 0 Refills Prov: STEVAN CUMMINSG 07/05/21 STEVAN CUMMINGS Jul 05, 2021 01:05
[2021-07-05] MEDS ORDERED: PRD20T PO (01:09)
== END 2021-07-05 01:14 | disposition home or self-care (01) ==
LOC: EDUNIT# 00:47 → ER 00:51
DX: L25.5 Unspecified contact dermatitis due to plants, except food (principal)
CPT/HCPCS: 84703; 99284

== ENCOUNTER 2021-07-10 11:04 | Emergency (ER) | payer MEDICAID ==
[~2021-07-10] VITALS: Ht 157 cm; Wt 50.0 kg
[~2021-07-10 11:04] MED LIST changes: +PRD20T PO
[2021-07-10 11:45] VITALS: BP 122/68
[2021-07-10] MEDS ORDERED: HYDR-700 PO (12:24)
--- NOTE | 2021-07-10 12:25 | ED General ---
General Chief Complaint: Skin/Wound Problems Stated Complaint: POSION LUCA ALL OVER Nursing Triage Note: Pt ambulatory to ED by POV with c/o poison luca all over her body. Pt was seen and treated for poison luca at ED on 07/05, she reports the steroid shot she received and the prednisone she was prescribed have helped, but she is still severly ithcy. Pt denies any difficulty breathing or feelings of her airway closing. Pt reports she has been increasingly anxious because of the poison luca. Source of Information: Patient, Old Records Exam Limitations: No Limitations History of Present Illness Date Seen by Provider: Jul 10, 2021 Time Seen by Provider: 11:45 Initial Comments This 26-year-old young lady presents to the emergency room with complaints of intensely pruritic poison luca and anxiety. She has previously been seen in the clinic and in the emergency room. She has received multiple steroid injections and is presently on a burst of prednisone. She describes significant anxiety and intense itching. She has tried Benadryl and at least 7 different topical me dications including Benadryl and hydrocortisone. She tried a prescription topical for eczema from a family member. She reports the symptoms started after she was helping her father cut trees last week. She states that itching along with social circumstances has caused intense anxiety. She has taken steroids in the past and denies that they cause her any problems with anxiety or agitation. Patient reports the rash is improving in some areas but spreading to other areas including more sensitive areas under the clothing. Allergies and Home Medications Allergies Coded Allergies: No Known Drug Allergies (Unverified , 12/13/12) Patient Home Medication List Home Medication List Reviewed: Yes Ferrous Sulfate (Ferrous Sulfate) 325 Mg Tablet, 325 MG PO DAILY@0700 Prescribed by: CHARLI HERNANDEZ on 04/14/18 0852 Hydrocodone Bit/Acetaminophen (Lortab 5 Mg Tablet) 1 Tab Tab, 1-2 TAB PO Q6H PRN for PAIN-MODERATE Prescribed by: CHARLI HERNANDEZ on 04/14/18 0852 Hydroxyzine HCl (Hydroxyzine HCl) 25 Mg Tablet, 25-50 MG PO Q6H PRN for ANXIETY Prescribed by: LOUIE LONG on 07/10/21 1224 Ibuprofen (Ibu) 600 Mg Tablet, 600 MG PO Q6H Prescribed by: CHARLI HERNANDEZ on 04/14/18 0852 Chx125/Iron Fumarate/FA/Dss ( 19 Tablet) 1 Each Tablet, 1 EACH PO DAILY, (Reported) Entered as Reported by: FRANCI ANDRADE on 04/11/182034 Prednisone (Prednisone) 20 Mg Tab, 40 MG PO DAILY Prescribed by: STEVAN CUMMINGS on 07/05/21 0109 Review of Systems Review of Systems Constitutional: no symptoms reported EENTM: no symptoms reported Respiratory: no symptoms reported Cardiovascular: no symptoms reported Gastrointestinal: no symptoms reported Genitourinary: no symptoms reported : No Musculoskeletal: no symptoms reported Skin: see HPI Psychiatric/Neurological: See HPI Hematologic/Lymphatic: No Symptoms Reported Immunological/Allergic: no symptoms reported Past Fzwactq-Iraecc-Ipuxkv Hx Patient Social History Tobacco Use?: No Use of E-Cig and/or Vaping dev: Yes E-Cig or Vaping type used: Nicotine Use of E-Cig and/or Vaping Donald: Current Everyday User Substance use?: No Alcohol Use?: No Pt feels they are or have been: No Immunizations Up To Date Tetanus Booster (TDap): Less than 5yrs PED Vaccines UTD: Yes Influenza Vaccine Up-to-Date: No; Not Current First/Initial COVID19 Vaccinat: 06/17 Second COVID19 Vaccination Carlton: 07/17 Seasonal Allergies Seasonal Allergies: No Past Medical History Surgeries: Yes (EAR TUBES) Section, Tonsillectomy Respiratory: No Cardiac: Yes Heart Murmur Neurological: No Reproductive Disorders: No Sexually Transmitted Disease: No HIV/AIDS: No UTI (peds) Gastrointestinal: No Musculoskeletal: Yes Fractures Endocrine: No HEENT: No Cancer: No Psychosocial: Yes Anxiety, Depression Integumentary: No Blood Disorders: No Family Medical History Patient reports no known family medical history. No Pertinent Family Hx Physical Exam Vital Signs Vital Signs - First Documented 07/10/21 11:45 Temp 37.0 Pulse 80 Resp 18 B/P (MAP) 122/68 (86) Pulse Ox 100 O2 Delivery Room Air Capillary Refill : Less Than 3 Seconds Height, Weight, BMI Height: 5'2.00" Weight: 141lbs. 4.0oz. 64.948678gk; 20.00 BMI Method: General Appearance: WD/WN, Anxious, Thin HEENT: PERRL/EOMI, Normal ENT Inspection Neck: Normal Inspection Respiratory: Lungs Clear, Normal Breath Sounds, No Accessory Muscle Use Cardiovascular: Regular Rate, Rhythm, No Murmur Extremity: No Pedal Edema, Other (Dry excoriated skin on the upper extremities) Neurologic/Psychiatric: Alert, Oriented x3, No Motor/Sensory Deficits, travel ot II- XII Norm as Tested, Other (Anxious) Skin: Warm/Dry, Other (Dry excoriated skin on the extremities and trunk, left greater than right) Progress/Results/Core Measures Suspected Sepsis SIRS Temperature: Pulse: 80 Respiratory Rate: 18 Blood Pressure 122 /68 Mean: 86 Results/Orders Vital Signs/I&O 07/10/21 11:45 Temp 37.0 Pulse 80 Resp 18 B/P (MAP) 122/68 (86) Pulse Ox 100 O2 Delivery Room Air Capillary Refill : Less Than 3 Seconds Blood Pressure Mean: 86 Progress Note : Progress Note Patient seems to have caused significant excoriation and dry skin from the topical medications and scratching. I have suggested that she stop the other topical medications and use a mild moisturizer such as Eucerin cream. She should replace Benadryl with hydroxyzine which will likely control her itching and anxiety better. Departure Impression Primary Impression: Anxiety Additional Impressions: Poison luca dermatitis Dry skin Disposition: 01 HOME, SELF-CARE Condition: Stable Departure-Patient Inst. Decision time for Depature: 12:10 Referrals: JEFF DAVALOS MD (PCP/Family) Primary Care Physician Patient Instructions: Anxiety, Adult ED, Poison Luca Add. Discharge Instructions: You may finish the prednisone previously prescribed. You may try using hydroxyzine as prescribed instead of Benadryl. As an alternative to the topical medications you have been trying, a mild moisturizing cream such as Eucerin cream may be very beneficial. Some of your itching may be due to the dryness of your skin, and some of the topical medications you are using may be making the problem worse. Call with questions or concerns. Return to care if you have worsening symptoms. All discharge instructions reviewed with patient and/or family. Voiced understanding. Scripts Hydroxyzine HCl (Hydroxyzine HCl) 25 Mg Tablet 25-50 MG PO Q6H PRN for ANXIETY, #20 TAB Prov: LOUIE CARY MD 07/10/21 Copy Copies To 1: JEFF DAVALOS MD, JOSHUA T MD Jul 10, 2021 12:24
== END 2021-07-10 12:29 | disposition home or self-care (01) ==
LOC: EDUNIT# 11:04 → ER 11:06
DX: F41.9 Anxiety disorder, unspecified (principal); L25.5 Unspecified contact dermatitis due to plants, except food; L85.3 Xerosis cutis; F17.200 Nicotine dependence, unspecified, uncomplicated
CPT/HCPCS: 99281

== ENCOUNTER 2022-08-12 20:40 | Emergency (ER) | payer MEDICAID ==
[~2022-08-12] VITALS: Ht 157.8 cm; Wt 49.8 kg
[~2022-08-12 20:40] MED LIST changes: +HYDR-700 PO
[2022-08-12 20:47] VITALS: BP 117/80
[2022-08-12] MEDS ORDERED: TRAM-42 PO (21:54)
--- NOTE | 2022-08-12 21:55 | ED Upper Extremity ---
General Chief Complaint: Upper Extremity Stated Complaint: RIGHT HAND PAIN Nursing Triage Note: PATIENT STATES THAT SHE PUNCHED A CONCRETE WALL LAST NIGHT (08/11/22) WITH HER RIGHT HAND AND SINCE THEN HAS BEEN EXPERIENCED INCREASED PAIN, SWELLING AND BRUISING. Source: patient History of Present Illness Date Seen by Provider: Aug 12, 2022 Time Seen by Provider: 21:00 Initial Comments PT ARRIVES VIA POV C/O RIGHT HAND INJURY STATES SHE "PUNCHED SOME THINGS"--A CONCRETE SLAB AND A WALL--LAST PM AROUND 2100 C/O PAIN, SWELLING AND BRUISING TO RIGHT HAND NO PARESTHESIAS OR MOTOR DEFICITS NO OTHER INJURES FROM THE INCIDENT NO PRIOR INJURY TO THIS HAND PT HAS NOT SOUGHT CARE UNTIL TONIGHT SYMPTOMS NO DIFFERENT TONIGHT HAS NOT TAKEN ANY THING FOR PAIN, HAS NOT ELEVATED OR APPLIED ICE, ETC. PT IS RIGHT HANDED. LMP 07/30/22. NORMAL NO CONTROL PCP: NUNO Allergies and Home Medications Allergies Coded Allergies: No Known Drug Allergies (Unverified , 12/13/12) Patient Home Medication List Home Medication List Reviewed: Yes Ferrous Sulfate (Ferrous Sulfate) 325 Mg Tablet, 325 MG PO DAILY@0700 Prescribed by: CHARLI HERNANDEZ on 04/14/18 0852 Hydrocodone Bit/Acetaminophen (Lortab 5 Mg Tablet) 1 Tab Tab, 1-2 TAB PO Q6H PRN for PAIN-MODERATE Prescribed by: CHARLI HERNANDEZ on 04/14/18 0852 Hydroxyzine HCl (Hydroxyzine HCl) 25 Mg Tablet, 25-50 MG PO Q6H PRN for ANXIETY Prescribed by: LOUIE LONG on 07/10/21 1224 Ibuprofen (Ibu) 600 Mg Tablet, 600 MG PO Q6H Prescribed by: CHARLI HERNANDEZ on 04/14/18 0852 Jei578/Iron Fumarate/FA/Dss ( 19 Tablet) 1 Each Tablet, 1 EACH PO DAILY, (Reported) Entered as Reported by: FRANCI ANDRADE on 04/11/182034 Prednisone (Prednisone) 20 Mg Tab, 40 MG PO DAILY Prescribed by: STEVAN CUMMINGS on 07/05/21 0109 Tramadol HCl (Ultram) 50 Mg Tablet, 50 MG PO Q4H Prescribed by: BRITTON BAUMANN on 08/12/222154 Review of Systems Constitutional: no symptoms reported LMP: Jul 30, 2022 Musculoskeletal: see HPI Psychiatric/Neurological: No Symptoms Reported Past Sghmccs-Zxiuhf-Thlfwq Hx Patient Social History Tobacco Use?: Yes Tobacco type used: Cigarettes Immunizations Up To Date Tetanus Booster (TDap): Less than 5yrs PED Vaccines UTD: Yes First/Initial COVID19 Vaccinat: 06/17 Second COVID19 Vaccination Carlton: 07/17 Third COVID19 Vaccination Date: 06/17 Seasonal Allergies Seasonal Allergies: No Past Medical History Surgeries: Yes (EAR TUBES) Section, Ear Surgery, Tonsillectomy Respiratory: No Cardiac: Yes Heart Murmur Neurological: No Last Menstrual Period: Jul 30, 2022 Reproductive Disorders: No Sexually Transmitted Disease: No HIV/AIDS: No Genitourinary: Yes UTI (peds) Gastrointestinal: No Musculoskeletal: Yes Fractures Endocrine: No HEENT: No Cancer: No Psychosocial: Yes Anxiety, Depression Integumentary: No Blood Disorders: No Family Medical History Patient reports no known family medical history. No Pertinent Family Hx Physical Exam Vital Signs Vital Signs - First Documented 08/12/22 20:47 Temp 36.8 Pulse 99 Resp 18 B/P (MAP) 117/80 (92) Pulse Ox 100 O2 Delivery Room Air Capillary Refill : Less Than 3 Seconds Height, Weight, BMI Height: 5'2.00" Weight: 141lbs. 4.0oz. 64.797015vu; 19.00 BMI Method: General Appearance: WD/WN, no apparent distress, other (EATING SNACKS AND DRINKING SODA, DESPITE ADVISING HER OF NO FOOD OR DRINK IN ER, AND SHE CONTINUES TO EAT AND DRINK ALL THROUGH MY HISTORY AND EXAM, IN ADDTION TO PLAYING/TEXTING ON HER PHONE THROUGHOUT MY HISTORY AND EXAM. ) Hand: Right, bone tenderness, ecchymosis, limited ROM, soft tissue tenderness, stiffness, swelling Neurologic/Tendon: normal sensation, normal motor functions, normal tendon functions Neurologic/Psychiatric: no motor/sensory deficits, alert, oriented x 3 Skin: normal color, warm/dry Procedures/Interventions Splinting and Joint Reduction : Marlon wrap: Yes Splints: Colles Wrist Progress/Results/Core Measures Results/Orders My Orders Orders - BRITTON BAUMANN DO Hand, Right, 3 Views (08/12/22 21:10) Ed Ortho/Other Supplies Order (08/12/22 21:44) Rx-Tramadol Hcl (Rx-Ultram) (08/12/22 21:44) Vital Signs/I&O 08/12/22 20:47 Temp 36.8 Pulse 99 Resp 18 B/P (MAP) 117/80 (92) Pulse Ox 100 O2 Delivery Room Air Blood Pressure Mean: 92 Progress Progress Note : Progress Note ADVISED PT OF NEED FOR FOLLOW UP WITH ORTHOPEDIC SURGEON, FOR FURTHER TREATMENT SHE STATES REPEATEDLY THAT SHE IS NOT HAVING SURGERY-- "THAT'S JUST STUPID" "SURGERY'S JUST STUPID" "I'M NOT GONNA HAVE ANY SURGERY" EXPLAINED TO HER SEVERAL TIMES THAT IT IS THE ORTHOPEDIC SURGEON'S DECISION REGARDING THE NEED FOR SURGERY OR NOT, AND ADVISED OF NEED FOR EVALUATION EVEN IF IT DOES NOT REQUIRE SURGERY THAT SHE WILL STILL NEED TREATMENT, SUCH A CAST OR A DIFFERENT SPLINT, AND FOLLOW UP TO ENSURE THAT IT IS HEALING PROPERLY. Diagnostic Imaging Comments XRAYS RIGHT HAND--PER RADIOLOGIST REPORT FINDINGS: There is a boxer's fracture extra-articular distal shaft 5th metacarpal with about 15 degrees anterior angulation of the distal fragment. No articular injury. Phalanges intact. IMPRESSION: Mild angulation without overlap of an extra-articular 5th metacarpal boxer's fracture deformity. Reviewed: Reviewed by Me Departure Impression Primary Impression: Closed fracture of fifth metacarpal bone of right hand Disposition: 01 HOME, SELF-CARE Condition: Stable Departure-Patient Inst. Decision time for Depature: 21:50 Referrals: JEFF DAVALOS MD (PCP/Family) Primary Care Physician LUISA KRAMER MD Patient Instructions: Splint Care ED, Hand Fracture ED Add. Discharge Instructions: WEAR SPLINT AT ALL TIMES ICE TO AREA AT 20 MINUTE INTERVALS ELEVATE HAND MUCH POSSIBLE FOLLOW UP WITH DR. KRAMER, ORTHOPEDIC SURGEON, THIS WEEK FOR FURTHER CARE--CALL IN THE MORNING TO SCHEDULE AN APPOINTMENT All discharge instructions reviewed with patient and/or family. Voiced u nderstanding. Scripts Tramadol HCl (Ultram) 50 Mg Tablet 50 MG PO Q4H for Pain, #20 TAB Prov: BRITTON BAUMANN DO 08/12/22 BRITTON BAUMANN DO Aug 12, 2022 21:55
--- NOTE | 2022-08-12 21:58 | Diagnostic Imaging Report ---
INDICATION: Punching injury with pain. FINDINGS: There is a boxer's fracture extra-articular distal shaft 5th metacarpal with about 15 degrees anterior angulation of the distal fragment. No articular injury. Phalanges intact. IMPRESSION: Mild angulation without overlap of an extra-articular 5th metacarpal boxer's fracture deformity. Dictated by: Dictated on workstation # [id number]
== END 2022-08-12 21:57 | disposition home or self-care (01) ==
LOC: EDUNIT# 20:40 → ER 20:41
DX: S62.306A Unspecified fracture of fifth metacarpal bone, right hand, initial encounter for closed fracture (principal); Y04.8XXA Assault by other bodily force, initial encounter
CPT/HCPCS: 73130

== ENCOUNTER → 2022-09-01 | Outpatient (CLI) | payer MEDICAID ==
[~2022-09-01] MED LIST changes: +TRAM-42 PO
--- NOTE | 2022-09-01 16:35 | Diagnostic Imaging Report ---
INDICATION: Follow-up trauma with fracture. The mildly angulated fracture of the distal diaphysis of the 5th metacarpal is again noted. There again is approximately 15 degrees of anterior angulation of the distal portion. There is no displacement. The MP joints are all intact. Carpal bones appear in good alignment. IMPRESSION: Mildly angulated fracture of the distal shaft 5th metacarpal with some early bony callus formation developing. Dictated by: Dictated on workstation # [id number]
== END ==
LOC: ORTHO 10:30
PROVIDERS: ATTEND Orthopaedic Surgery
DX: S62.306D Unspecified fracture of fifth metacarpal bone, right hand, subsequent encounter for fracture with routine healing (principal); X58.XXXD Exposure to other specified factors, subsequent encounter
CPT/HCPCS: 73130; G0463; 99203